=== PATIENT | male | born 1955 | race Caucasian/White ===

== ENCOUNTER 2021-11-30 14:01 | Emergency (ER) | payer OTHER ==
[2021-11-30] MEDS ORDERED: Nitroglycerin 0.4 MG Tab.SL SL ONE (14:43)
[2021-11-30] MEDS ORDERED: Iopamidol 755 Mg/ML 100 ML Bottle IVPUSH ONE (16:37)
[2021-11-30] MEDS ORDERED: Sodium Chloride 0.9% 10 ML Syringe FLUSH ONE (16:37)
[2021-11-30] MEDS ORDERED: Sodium Chloride 0.9% 100 ML IV SCH (16:45)
== END 2021-11-30 18:30 | disposition home or self-care (01) ==
LOC: JD.ED 14:01
DX: I20.9 Angina pectoris, unspecified (principal); I10 Essential (primary) hypertension; I25.2 Old myocardial infarction; Z20.822 Contact with and (suspected) exposure to COVID-19
CPT/HCPCS: 36415; 71045; 71275; 80053; 83735; 84484; 85025; 85379; 85610; 87635; 93005; 96360; 96361; 99285; A9270; J3490; Q9967; U0002